=== PATIENT | female | born 1995 | race Caucasian/White ===

== ENCOUNTER 2017-07-09 17:00 | Emergency (ER) | payer OTHER ==
[2017-07-09 17:05] VITALS: BMI 30.2
[2017-07-09 17:58] LABS: RBC URINE 1 /hpf (0-3); URINE BILIRUBIN NEGATIVE (NEGATIVE); URINE BLOOD NEGATIVE (NEGATIVE); URINE COLOR Yellow (YELLOW); URINE GLUCOSE (UA) NORMAL (Normal); URINE KETONE NEGATIVE (NEGATIVE); URINE LEUKOCYTE ESTERASE NEG Leu/uL (Negative); URINE PROTEIN NEGATIVE (NEGATIVE); WBC URINE < 1 /hpf (0-5)
[2017-07-09] MEDS ORDERED: Sodium Chloride 0.9% 1,000 ML IV STA (18:00)
[2017-07-09] MEDS ORDERED: Iohexol 240 (50 ml) PO STA (18:00)
--- NOTE | 2017-07-09 18:46 | C.PDOC ---
History Of Present Illness <Cathy Shelby - Last Filed: 07/09/17 19:07> <Sung Ross - Last Filed: 07/09/17 19:40> 22-year-old female, presents to the emergency department with complaints of abdominal pain. Patient states she has been experiencing one-week duration of left lower quadrant abdominal pain, that is associated with non-bloody/watery diarrhea that started yesterday, Patient denies nausea/vomiting, fevers, chills , back pain, sick contacts or any other associated symptoms. No other complaints at this time. (Cathy Shelby) History Per: Patient History/Exam Limitations: no limitations Onset/Duration Of Symptoms: Days Current Symptoms Are (Timing): Still Present Severity: Moderate <Cathy Shelby - Last Filed: 07/09/17 19:07> <Sung Ross - Last Filed: 07/09/17 19:40> Time Seen by Provider: 07/09/17 17:46 Chief Complaint (Nursing): Abdominal Pain Past Medical History Reviewed: Historical Data, Nursing Documentation, Vital Signs Surgical History: Appendectomy (2009), Tonsillectomy (2004) Family History: States: No Known Family Hx - Social History Hx Tobacco Use: No Hx Alcohol Use: No Hx Substance Use: No - Immunization History Hx Tetanus Toxoid Vaccination: No Hx Influenza Vaccination: No Hx Pneumococcal Vaccination: No <Cathy Shelby - Last Filed: 07/09/17 19:07> Vital Signs: Last Vital Signs Temp 98.3 F 07/09/17 17:06 Pulse 86 07/09/17 17:06 Resp 20 07/09/17 17:06 BP 124/87 07/09/17 17:06 Pulse Ox 99 07/09/17 19:08 Review Of Systems Except As Marked, All Systems Reviewed And Found Negative. Constitutional: Negative for: Fever, Chills Cardiovascular: Negative for: Chest Pain Respiratory: Negative for: Shortness of Breath Gastrointestinal: Positive for: Abdominal Pain, Diarrhea. Negative for: Nausea , Vomiting Musculoskeletal: Negative for: Neck Pain, Back Pain Neurological: Negative for: Weakness, Numbness, Headache, Dizziness <Cathy Shelby - Last Filed: 07/09/17 19:07> Physical Exam - Physical Exam Appears: Non-toxic, No Acute Distress Skin: Normal Color, Warm, Dry, No Rash Head: Atraumatic, Normacephalic Eye(s): bilateral: Normal Inspection, PERRL Nose: Normal Oral Mucosa: Moist Lips: Normal Appearing Neck: Normal ROM Chest: Symmetrical Cardiovascular: Rhythm Regular, No Murmur Respiratory: Normal Breath Sounds, No Accessory Muscle Use Gastrointestinal/Abdominal: Soft, Tenderness (mild), No Guarding, No Rebound Extremity: Normal ROM Neurological/Psych: Oriented x3, Normal Speech <Cathy Shelby - Last Filed: 07/09/17 19:07> ED Course And Treatment O2 Sat by Pulse Oximetry: 99 <Cathy Shelby - Last Filed: 07/09/17 19:07> - Laboratory Results Result Diagrams: 07/09/17 18:47 07/09/17 18:47 Lab Interpretation: Normal (ua neg.) Urine POC: Negative - Radiology CXR: Interpreted by Me CXR Interpretation: Yes: No Acute Disease - Other Rad abd x 2 X-Ray: Interpreted by Me (+FOS/gas) Progress Note: 1900: signed over to f/u CT abd and labs, crampy LLQ abd discomfort for 1 day. pt seen and examined, NAD. no LLQ tender. + alt dull/ tympanic to percussion, +ROS constip, constipating diet <Sung Ross - Last Filed: 07/09/17 19:40> Medical Decision Making <Cathy Shelby - Last Filed: 07/09/17 19:07> <Sung Ross - Last Filed: 07/09/17 19:40> Medical Decision Making: acute on chronic constip (Sung Ross) Disposition - Disposition Disposition Time: 19:08 <Cathy Shelby - Last Filed: 07/09/17 19:07> <Sung Ross - Last Filed: 07/09/17 19:40> - Disposition Condition: STABLE Forms: [facility] (Amharic) - Clinical Impression Clinical Impression: Abdominal pain, Diarrhea, Constipation - Scribe Statement The provider has reviewed the documentation as recorded by the Scribe (Nathan Ramírez) <Cathy Shelby - Last Filed: 07/09/17 19:07> <Sung Ross - Last Filed: 07/09/17 19:40> - Scribe Statement All medical record entries made by the Scribe were at my direction and personally dictated by me. I have reviewed the chart and agree that the record accurately reflects my personal performance of the history, physical exam, medical decision making, and the department course for this patient. I have also personally directed, reviewed, and agree with the discharge instructions and disposition. (Cathy Shelby) Physician Patient Turnover Patient Signed Over To: Sung Ross Handoff Comments: labs, CT, dispo <Cathy Shelby - Last Filed: 07/09/17 19:07>
[2017-07-09 19:07] LABS: BASO # 0.1 K/uL (0.0-0.2); BASO % 0.8 % (0.0-2.0); EOS # 0.1 K/uL (0.0-0.7); EOS % 1.2 % (0.0-4.0); HEMATOCRIT 36.7 % (34.0-47.0); LYMPH # 1.2 K/uL (1.0-4.3); LYMPH % 14.5 % (20.0-40.0); MEAN CELL VOLUME 89.2 fL (81.0-99.0); MEAN CORPUSCULAR HEMOGLOBIN 29.9 pg (27.0-31.0); MEAN CORPUSCULAR HGB CONC 33.5 g/dL (33.0-37.0); MEAN PLATELET VOLUME 11.8 fL (7.2-11.7); MONO # 0.5 K/uL (0.0-0.8); RED CELL DISTRIBUTION WIDTH 13.2 % (11.5-14.5); WHITE BLOOD COUNT 8.6 K/uL (4.8-10.8)
[2017-07-09 19:14] LABS: CHLORIDE 103 mmol/L (98-107); POTASSIUM 4.1 mmol/L (3.6-5.2); SODIUM 138 mmol/L (132-148)
[2017-07-09 19:16] LABS: GFR AFRICAN-AMERICAN > 60
[2017-07-09 19:17] LABS: ALKALINE PHOSPHATASE 90 U/L (38-126); ALT/SGPT 29 U/L (9-52); AST/SGOT 19 U/L (14-36); BILIRUBIN,TOTAL 0.5 mg/dL (0.2-1.3); BLOOD UREA NITROGEN 9 mg/dL (7-17); CALCIUM 9.5 mg/dl (8.6-10.4); CARBON DIOXIDE 23 mmol/L (22-30); GLUCOSE,RANDOM 89 mg/dL (65-105); TOTAL PROTEIN 8.6 g/dL (6.3-8.3)
[2017-07-09] MEDS ORDERED: Iohexol 240 (50 ml) ONE (19:21)
[2017-07-09 21:23] VITALS: BP 113/76; PULSE 84; RESP 16; TEMP 97.8; O2SAT 96
--- NOTE | 2017-07-10 09:02 | RAD ---
PROCEDURE: Radiographs of the chest and abdomen (obstructive series) HISTORY: LLQ crampy COMPARISON: No prior. TECHNIQUE: AP radiograph of the chest, with upright and supine radiographs of the abdomen. FINDINGS: CHEST: Lungs: Clear. Cardiovascular: Normal size heart. No pulmonary vascular congestion. Pleura: No pleural fluid. No pneumothorax. Other findings: None. ABDOMEN AND PELVIS: Bowel: Unremarkable bowel gas pattern. No evidence of mechanical obstruction. Free air: None. Bones: Unremarkable. Other findings: None. IMPRESSION: Unremarkable radiographs of chest and abdomen. No evidence of mechanical bowel obstruction.
== END 2017-07-09 20:00 | disposition home or self-care (01) ==
LOC: C.ER 17:00
DX: R19.7 Diarrhea, unspecified (principal); K59.00 Constipation, unspecified; R10.32 Left lower quadrant pain
CPT/HCPCS: 74022; 80053; 81001; 83690; 84703; 85025; 96361; 96374; 96375; 99284; C9113; J2405; J7040

== ENCOUNTER 2017-11-11 17:46 | Emergency (ER) | payer OTHER ==
[2017-11-11 17:46] VITALS: BMI 30.2
[2017-11-11 17:50] VITALS: TEMP 98; O2SAT 98
--- NOTE | 2017-11-11 18:35 | C.PDOC ---
History Of Present Illness 22 year old female presents to the ER to confirm the results of a test. Patient reports that she took a test at home which was positive. Patient notes that her LMP was on Oct 09, 2017. Patient denies having any pain. Time Seen by Provider: 11/11/17 18:22 Chief Complaint (Nursing): Medical Clearance History Per: Patient History/Exam Limitations: no limitations Past Medical History Reviewed: Historical Data, Nursing Documentation, Vital Signs Vital Signs: Last Vital Signs Temp 98.0 F 11/11/17 17:48 Pulse 78 11/11/17 18:43 Resp 16 11/11/17 18:43 BP 132/78 11/11/17 18:43 Pulse Ox 98 11/11/17 21:06 - Medical History PMH: No Chronic Diseases Surgical History: Appendectomy (2009), Tonsillectomy (2004) Family History: States: No Known Family Hx - Social History Hx Tobacco Use: No Hx Alcohol Use: No Hx Substance Use: No - Immunization History Hx Tetanus Toxoid Vaccination: No Hx Influenza Vaccination: No Hx Pneumococcal Vaccination: No Review Of Systems Constitutional: Negative for: Fever, Malaise Cardiovascular: Negative for: Palpitations Respiratory: Negative for: Cough, Shortness of Breath Gastrointestinal: Negative for: Vomiting, Abdominal Pain, Diarrhea Genitourinary: Negative for: Dysuria, Vaginal Bleeding Neurological: Negative for: Headache, Dizziness Physical Exam - Physical Exam Appears: Non-toxic, No Acute Distress Skin: Normal Color, Warm Head: Atraumatic, Normacephalic Eye(s): bilateral: Normal Inspection Nose: Normal Oral Mucosa: Moist Neck: Supple Chest: Symmetrical Cardiovascular: Rhythm Regular Respiratory: Normal Breath Sounds, No Accessory Muscle Use, No Rales, No Rhonchi , No Wheezing Extremity: Bilateral: Atraumatic, Normal Color And Temperature, Normal ROM Neurological/Psych: Oriented x3, Normal Speech ED Course And Treatment O2 Sat by Pulse Oximetry: 98 (RA) Pulse Ox Interpretation: Normal Medical Decision Making Medical Decision Making: Patient requesting test for confirmation. POC test is positive in ED. Patient appears well and has no somatic complaints. Patient can follow up outpatient with [facility] and to have further care Disposition Counseled Patient/Family Regarding: Diagnosis, Need For Followup - Disposition [facility] Disposition: HOME/ ROUTINE Disposition Time: 18:32 Condition: GOOD Additional Instructions: Your test was positive for You can start taking vitamins Follow up with [facility] or clinic Instructions: (ED) Forms: [facility] (Citizen Of [place]) - POA Present On Arrival: None - Clinical Impression Clinical Impression: Positive test - PA / CARDIOVASCULAR TECH / Resident Statement MD/DO has reviewed & agrees with the documentation as recorded. - Scribe Statement The provider has reviewed the documentation as recorded by the Marthaibe Terrance Parry Provider Attestation All medical record entries made by the Marthaibe were at my direction and personally dictated by me. I have reviewed the chart and agree that the record accurately reflects my personal performance of the history, physical exam, medical decision making, and the department course for this patient. I have also personally directed, reviewed, and agree with the discharge instructions and disposition.
[2017-11-11 18:45] VITALS: BP 132/78; PULSE 78; RESP 16
== END 2017-11-11 18:43 | disposition home or self-care (01) ==
LOC: C.ER 17:46
DX: Z32.01 Encounter for pregnancy test, result positive (principal)